=== PATIENT | male | born 1970 | race African-American/Black ===

== ENCOUNTER 2023-02-14 04:21 | Day surgery (SDC) | payer OTHER ==
[2023-02-13 13:13] VITALS: BMI 24.4
[2023-02-14 14:16] VITALS: TEMP 98
[2023-02-14 15:00] VITALS: BP 122/76; PULSE 78; RESP 18
== END 2023-02-14 15:00 | disposition home or self-care (01) ==
LOC: JASU-ENDO 04:21
PROVIDERS: ATTEND Internal Medicine Gastroenterology
PROC: 0DJD8ZZ Inspection of Lower Intestinal Tract, Via Natural or Artificial Opening Endoscopic (ICD-10-PCS; principal; 2023-02-14 13:00)
DX: Z12.11 Encounter for screening for malignant neoplasm of colon (principal)